=== PATIENT | male | born 1970 | race Hispanic/Latino ===

== ENCOUNTER 2017-05-20 16:10 | Emergency (ER) | payer OTHER ==
[2017-05-20 16:17] VITALS: BP 152/86; RESP 15; TEMP 98.8; O2SAT 100
[2017-05-20 17:08] LABS: BASO % 0.5 % (0.0-2.0); EOS % 0.9 % (0.0-4.0); HEMATOCRIT 44.4 % (35.0-51.0); LYMPH # 1.4 K/uL (1.0-4.3); LYMPH % 30.4 % (20.0-40.0); MEAN CORPUSCULAR HGB CONC 34.1 g/dL (33.0-37.0); MEAN PLATELET VOLUME 8.1 fl (7.2-11.7); MONO # 0.6 K/uL (0.0-0.8); NEUT # 2.5 K/uL (1.8-7.0); NEUT % 55.2 % (50.0-75.0); NRBC % 0.1 % (0.0-0.0); RED CELL DISTRIBUTION WIDTH 13.5 % (11.5-14.5); WHITE BLOOD COUNT 4.5 K/uL (4.8-10.8)
[2017-05-20 17:18] LABS: ALB/GLOB RATIO 1.5 (1.0-2.1); ALKALINE PHOSPHATASE 49 U/L (38-126); ALT/SGPT 47 U/L (21-72); AST/SGOT 43 U/L (17-59); BILIRUBIN,TOTAL 0.7 mg/dl (0.2-1.3); BLOOD UREA NITROGEN 20 mg/dl (9-20); CALCIUM 9.4 mg/dL (8.4-10.2); CARBON DIOXIDE 27 mmol/L (22-30); CHLORIDE 100 mmol/L (98-107); GFR AFRICAN-AMERICAN > 60; GLUCOSE,RANDOM 97 mg/dL (75-110); POTASSIUM 3.8 MMOL/L (3.6-5.0); SODIUM 137 mmol/l (132-148); TOTAL PROTEIN 6.8 G/DL (6.3-8.2)
--- NOTE | 2017-05-20 17:21 | ED PDOC ---
HPI: General Adult Time Seen by Provider: 05/20/17 16:19 Chief Complaint (Nursing): Chest Pain History Per: Patient Additional Complaint(s): Pt. states last night he developed atraumatic R sided chest pain. Reports that last week he began taking dextroamphetamine for his ADHD. States that since developing the chest pain he's felt anxious. Also states that he had similar symptoms in the past and was dx as having rhabdomyolysis. Denies palpitations, SOB, cough, hemoptysis, fever, trauma, cough, hx of DVT or PE, illicit drug use , radiation of pain. Past Medical History Reviewed: Historical Data, Nursing Documentation, Vital Signs Vital Signs: Last Vital Signs Temp 98.8 F 05/20/17 16:12 Pulse 71 05/20/17 17:23 Resp 15 05/20/17 16:12 BP 152/86 H 05/20/17 16:12 Pulse Ox 100 05/20/17 17:23 - Medical History PMH: Anxiety, HTN, Sleep Apnea Denies: Chronic Kidney Disease - Surgical History Surgical History: Hernia Repair - Family History Family History: States: No Known Family Hx - Immunization History Hx Influenza Vaccination: No - Home Medications Home Medications: Ambulatory Orders Medication Instructions Recorded Ativan 1 mg PO BID PRN 10/03/15 Lisinopril 10 mg PO DAILY 10/03/15 Dexlansoprazole [Dexilant] 60 mg PO DAILY #0 bp 10/05/15 Hydrochlorothiazide 25 mg PO DAILY #0 tablet 10/05/15 Lisinopril [Zestril] 10 mg PO DAILY #0 tab 10/05/15 - Allergies Allergies/Adverse Reactions: Allergies Allergy/AdvReac Type Severity Reaction Status Date / Time No Known Allergies Allergy Verified 10/03/15 19:52 Review of Systems ROS Statement: Except As Marked, All Systems Reviewed And Found Negative Cardiovascular: Positive for: Chest Pain Physical Exam - Reviewed Nursing Documentation Reviewed: Yes Vital Signs Reviewed: Yes - Physical Exam Appears: Positive for: Well, Non-toxic, No Acute Distress Head Exam: Positive for: ATRAUMATIC, NORMAL INSPECTION, NORMOCEPHALIC Skin: Positive for: Normal Color, Warm. Negative for: Rash Eye Exam: Positive for: EOMI, Normal appearance, PERRL ENT: Positive for: Normal ENT Inspection Neck: Positive for: Normal, Painless ROM Cardiovascular/Chest: Positive for: Regular Rate, Rhythm, Chest Non Tender Respiratory: Positive for: CNT, Normal Breath Sounds Gastrointestinal/Abdominal: Positive for: Normal Exam, Bowel Sounds, Soft. Negative for: Tenderness Back: Positive for: Normal Inspection Extremity: Positive for: Normal ROM Neurologic/Psych: Positive for: Alert, Oriented. Negative for: Aphasia, Facial Droop - Laboratory Results Result Diagrams: 05/20/17 17:00 05/20/17 17:00 - ECG ECG: Positive for: Interpreted By Me ECG Rhythm: Positive for: Sinus Rhythm. Negative for: ST/T Changes Rate: 71 O2 Sat by Pulse Oximetry: 100 - Radiology X-Ray: Interpreted by Me (CXR) X-Ray Interpretation: No Acute Disease - Progress ED Course And Treament: Labs ordered. CXR ordered. EKG ordered. Ativan 1mg PO ordered. CTA chest ordered to r/o PE. CPK elevated. IV NS bolus x 2 ordered. Case d/w Dr. Vides who states pt. can be dc'd after fluid hydration. CTA chest: negative. Disposition - Clinical Impression Clinical Impression: Medication reaction - Patient ED Disposition Is Patient to be Admitted: No - Disposition Referrals: [facility] [Outside] Disposition Time: 20:00 Condition: STABLE Instructions: Chest Pain (ED) Forms: [facility] (Maltese)
[2017-05-20 17:23] VITALS: PULSE 71
[2017-05-20] MEDS ORDERED: Sodium Chloride 0.9% 1,000 ML IV STA ×2 (17:43)
[2017-05-20 17:48] LABS: RBC URINE < 1 /hpf (0-3); URINE BILIRUBIN NEGATIVE (NEGATIVE); URINE BLOOD NEGATIVE (NEGATIVE); URINE COLOR STRAW (YELLOW); URINE GLUCOSE (UA) NEG (Normal); URINE KETONE NEGATIVE (NEGATIVE); URINE LEUKOCYTE ESTERASE NEG Leu/uL (Negative); URINE PROTEIN NEGATIVE (NEGATIVE); URINE UROBILINOGEN 0.2-1.0 mg/dL (0.2-1.0)
--- NOTE | 2017-05-20 17:53 | RAD ---
HISTORY: chest pain COMPARISON: None available. TECHNIQUE: Chest PA and lateral FINDINGS: Examination limited by habitus. LUNGS: No focal consolidation. Please note that chest x-ray has limited sensitivity for the detection of pulmonary masses. PLEURA: No significant pleural effusion identified. No definite pneumothorax . CARDIOVASCULAR: Heart size appears within normal limits. OSSEOUS STRUCTURES: No acute osseous abnormality identified. VISUALIZED UPPER ABDOMEN: Unremarkable. OTHER FINDINGS: None. IMPRESSION: No focal consolidation, significant pleural effusion, or definite pneumothorax identified.
[2017-05-20] MEDS ORDERED: Sodium Chloride 0.9% 50 ML IV ONE (18:27)
[2017-05-20] MEDS ORDERED: Iodixanol 320 MG/ML 100 ML BOTTLE IV ONE (18:27)
--- NOTE | 2017-05-21 08:09 | CT ---
PROCEDURE: CT Chest with contrast (Pulmonary Angiogram) HISTORY: R sided chest pain, elevated d-dimer COMPARISON: None available. TECHNIQUE: Axial computed tomography images were obtained of the chest in the pulmonary arterial phase of enhancement. Coronal and sagittal reformatted images were created and reviewed. Maximum intensity projection (MIP) reconstructed images in the following planes: Sagittal coronal and axial Intravenous contrast dose: 95 cc Visipaque 320 Mean Hounsfield unit values in the main pulmonary artery: 255.70 Radiation dose: Total exam DLP = 446.67 mGy-cm. This CT exam was performed using one or more of the following dose reduction techniques: Automated exposure control, adjustment of the mA and/or kV according to patient size, and/or use of iterative reconstruction technique. FINDINGS: PULMONARY ARTERIES: Unremarkable. No pulmonary embolism. AORTA: No acute findings. No thoracic aortic aneurysm. LUNGS: Unremarkable. No nodule, mass or pulmonary consolidation. PLEURAL SPACES: Unremarkable. No effusion or pneuomothorax. HEART: Unremarkable. No cardiomegaly. No significant pericardial effusion. LYMPH NODES: No lymphadenopathy. BONES, CHEST WALL: Unremarkable. No fracture or destructive lesion OTHER FINDINGS: Unremarkable. IMPRESSION: Unremarkable CT pulmonary angiogram. No pulmonary embolus. Concordant results (preliminary interpretation) provided by [facility]. Procedure Completed: 18:44 Preliminary ([facility]) Report: Dictated and Authenticated: 19:53 Final Interpretation: 08:05 May 21, 2017.
--- NOTE | 2017-05-21 10:35 | CARD ---
APPROVED REPORT EKG Measurement Heart [id number] OK 128P [id number] <Conclusion> Normal sinus rhythm Left posterior fascicular block Abnormal ECG
== END 2017-05-20 20:30 | disposition home or self-care (01) ==
LOC: H.ER 16:10
DX: R07.89 Other chest pain (principal)
CPT/HCPCS: 71020; 71275; 80053; 81003; 82550; 84484; 85025; 85378; 93005; 99282; J7040; Q9967